=== PATIENT | female | born 1990 | race Caucasian/White ===

== ENCOUNTER 2022-02-16 19:55 | Inpatient (IN) | payer OTHER ==
[~2022-02-16] VITALS: Ht 157.5 cm; Wt 96.2 kg
[2022-02-16 21:12] LABS: BILIRUBIN NEGATIVE (NEGATIVE); BLOOD NEGATIVE Ery/uL (NEGATIVE); CLARITY CLEAR (CLEAR); COLOR YELLOW (YELLOW); GLUCOSE (U) NORMAL (NORMAL); HCT 37.9 % (37.0-47.0); HGB 13.3 g/dl (12.5-16.0); LEUKOCYTES TRACE Leu/uL (NEGATIVE); MCH 30.1 pg (25.0-31.0); MCHC 35.1 g/dL (32.0-36.0); MCV 85.7 fL (78.0-100.0); MPV 11.4 fL (6.0-9.5); NITRITE NEGATIVE (NEGATIVE); PROTEIN TRACE (LOW) mg/dL (NEGATIVE); RBC 4.42 M/uL (4.20-5.40); RDW 13.5 % (11.5-14.0); SPECIFIC GRAVITY 1.015 (1.001-1.030); UROBILINOGEN 0.2 mg/dL (0.2-1.0); WBC 11.2 K/uL (4.0-10.5)
[2022-02-16 21:25] LABS: BACTERIA 1+; URINARY RBC RARE; URINARY WBC RARE
[2022-02-18 07:23] LABS: HCT 32.1 % (37.0-47.0); HGB 11.1 g/dl (12.5-16.0); MCH 30.2 pg (25.0-31.0); MCHC 34.6 g/dL (32.0-36.0); MCV 87.5 fL (78.0-100.0); MPV 11.6 fL (6.0-9.5); RBC 3.67 M/uL (4.20-5.40); RDW 13.4 % (11.5-14.0); WBC 13.6 K/uL (4.0-10.5)
[2022-02-19] MEDS ORDERED: IBUPROFEN800 MG PO (14:36)
[2022-02-19] MEDS ORDERED: COLACE100 MG PO (14:37)
[2022-02-19] MEDS ORDERED: PRENATAL FORMU1 EACH PO (14:37)
== END 2022-02-19 17:52 | disposition home or self-care (01) | DRG 806 ==
LOC: FOB 19:55
PROVIDERS: ADMIT Obstetrics & Gynecology
PROC: 10E0XZZ Delivery of Products of Conception, External Approach (ICD-10-PCS; principal; 2022-02-17)
PROC: 0KQM0ZZ Repair Perineum Muscle, Open Approach (ICD-10-PCS; 2022-02-17)
PROC: 3E0P7VZ Introduction of Hormone into Female Reproductive, Via Natural or Artificial Opening (ICD-10-PCS; 2022-02-17)
DX: O30.043 Twin pregnancy, dichorionic/diamniotic, third trimester (principal); K56.0 Paralytic ileus; Z37.2 Twins, both liveborn; O10.92 Unspecified pre-existing hypertension complicating childbirth; O99.214 Obesity complicating childbirth; O99.62 Diseases of the digestive system complicating childbirth; Z20.822 Contact with and (suspected) exposure to COVID-19; Z3A.38 38 weeks gestation of pregnancy; Z67.91 Unspecified blood type, Rh negative; O70.1 Second degree perineal laceration during delivery
CPT/HCPCS: 36415; 81001; 85461; 86850; 86900; 86901; J2210; J2300; J2405; J2790; J7120; U0002